=== PATIENT | female | born 1990 | race Caucasian/White ===

== ENCOUNTER 2020-08-13 05:49 | Day surgery (SDC) | payer BC ==
[~2020-08-13] VITALS: Ht 170.2 cm; Wt 90.9 kg
[2020-08-13 06:13] LABS: BASOPHILS 1.1 % (0-2); EOSINOPHILS 2.5 % (0-7); HEMATOCRIT 30.7 % (36.0-48.0); HEMOGLOBIN 10.8 g/dL (12-16); LYMPHOCYTE ABS# 1.12 10x3/uL (1.18-3.74); LYMPHOCYTES 40.3 % (15-50); MCH 31.5 pg (26.0-34.0); MCHC 35.2 g/dL (31.0-37.0); MCV 89.5 fL (80.0-100.0); MEAN PLATELET VOLUME 9.7 fL (7.4-10.4); MONOCYTES 7.9 % (2-11); NEUTROPHIL ABS# 1.34 10x3/uL (1.56-6.13); NEUTROPHILS 48.2 % (40-80); PLATELET COUNT 144 10x3/uL (130-400); RBC 3.43 10x6/uL (4.00-5.40); RDW 16.5 % (11.5-14.5); WBC 2.8 10x3/uL (4.8-10.8)
[2020-08-13 06:21] LABS: ANION GAP 11.8 mmol/L (8-16); CALCIUM 9.6 mg/dL (8.5-10.1); CARBON DIOXIDE 26.9 mmol/L (21.0-32.0); CREATININE - SERUM 1.2 mg/dL (0.6-1.3); POTASSIUM - SERUM 3.7 mmol/L (3.5-5.1)
[2020-08-13 06:22] LABS: INR 1.14 (0.85-1.17); PROTIME 13.5 SECONDS (11.6-15.0)
[2020-08-13] MEDS ORDERED: [UNRECOGNIZED DRUG - OTHER] (07:25)
[2020-08-13] MEDS ORDERED: FEMARA2.5 MG PO (07:25)
[2020-08-13 07:26] VITALS: BP 98/56; Ht 170.2 cm; Wt 90.9 kg
== END 2020-08-13 12:08 | disposition home or self-care (01) ==
LOC: D.SP 05:49 → D.CT 08:00 → D.SP 12:08
PROVIDERS: Radiology Vascular & Interventional Radiology; ATTEND Internal Medicine Medical Oncology
DX: C50.211 Malignant neoplasm of upper-inner quadrant of right female breast (principal); Z79.810 Long term (current) use of selective estrogen receptor modulators (SERMs); R07.89 Other chest pain; R06.02 Shortness of breath; D64.81 Anemia due to antineoplastic chemotherapy; R91.1 Solitary pulmonary nodule; R91.8 Other nonspecific abnormal finding of lung field